=== PATIENT | female | born 1960 | race African-American/Black ===

== ENCOUNTER 2017-09-09 18:10 | Emergency (ER) | payer SELFPAY ==
[~2017-09-09] VITALS: Ht 170.2 cm; Wt 73.0 kg
[2017-09-09] MEDS ORDERED: ACETAMINOPHEN 325MG TABLET PO ONE (20:00)
[2017-09-09] MEDS ORDERED: ACETAMINOPHEN 325MG TABLET ONE (20:22)
[2017-09-09 21:02] VITALS: BP 129/75
== END 2017-09-09 21:07 | disposition home or self-care (01) ==
LOC: ER 20:12
DX: S46.912A Strain of unspecified muscle, fascia and tendon at shoulder and upper arm level, left arm, initial encounter (principal); J45.909 Unspecified asthma, uncomplicated; F12.10 Cannabis abuse, uncomplicated; Z98.890 Other specified postprocedural states; Z88.6 Allergy status to analgesic agent; X50.3XXA Overexertion from repetitive movements, initial encounter; Y93.89 Activity, other specified; Y92.89 Other specified places as the place of occurrence of the external cause
CPT/HCPCS: 73030; 99284